=== PATIENT | male | born 1960 | race Caucasian/White ===

== ENCOUNTER 2021-12-08 06:21 | Day surgery (SDC) | payer OTHER ==
[2021-12-06 13:49] VITALS: BMI 35.2
[2021-12-08] MEDS ORDERED: MIDAZOLAM HCL 2 MG/2 ML SINGLE DOSE VIAL ONE ×2 (07:23→07:49)
[2021-12-08] MEDS ORDERED: PROPOFOL 20 ML ONE ×2 (07:23→08:27)
[2021-12-08] MEDS ORDERED: SUCCINYLCHOLINE CHLORIDE 200 MG/10 ML SYRINGE ONE (07:23)
[2021-12-08] MEDS ORDERED: BUPIVACAINE HCL 50 ML ONE (07:35)
[2021-12-08] MEDS ORDERED: DEXAMETHASONE SOD PHOSPHATE 4 MG/1 ML VIAL ONE (08:04)
[2021-12-08] MEDS ORDERED: ONDANSETRON 4 MG/2 ML VIAL ONE (08:04)
[2021-12-08] MEDS ORDERED: ceFAZolin SODIUM 1 GM VIAL ONE (08:04)
[2021-12-08] MEDS ORDERED: ACETAMINOPHEN INJECTION 100 ML IVPB ONE (08:48)
[2021-12-08] MEDS ORDERED: KETOROLAC TROMETHAMINE 30 MG/1 ML VIAL ONE (08:48)
[2021-12-08] MEDS ORDERED: KETOROLAC TROMETHAMINE 30 MG/1 ML VIAL IVPUSH ONE (08:59)
[2021-12-08] MEDS ORDERED: ACETAMINOPHEN 1000 MG/100 ML BAG IVPB ONE (08:59)
[2021-12-08] MEDS ORDERED: ONDANSETRON 4 MG/2 ML VIAL IVPUSH PRN (08:59)
[2021-12-08] MEDS ORDERED: oxyCODONE HCL 5 MG TABLET PO PRN (08:59)
[2021-12-08] MEDS ORDERED: LACTATED RINGERS SOLUTION 1,000 ML IV SCH (09:00)
[2021-12-08 09:50] VITALS: TEMP 98
[2021-12-08 10:18] VITALS: BP 137/67; PULSE 74
== END 2021-12-08 10:10 | disposition home or self-care (01) ==
LOC: FASU 06:21
PROVIDERS: ATTEND Orthopaedic Surgery
PROC: 0SBC4ZZ Excision of Right Knee Joint, Percutaneous Endoscopic Approach (ICD-10-PCS; principal; 2021-12-08 08:14)
DX: Y92.9 Unspecified place or not applicable (principal)
CPT/HCPCS: 94760